=== PATIENT | male | born 1990 | race Caucasian/White ===

== ENCOUNTER → 2020-04-12 | Outpatient (CLI) | payer BC ==
[2015-01-16 09:14] VITALS: BP 123/72
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
== END | disposition home or self-care (01) ==
LOC: KCIC MRI 15:00
PROVIDERS: ATTEND Orthopaedic Surgery Sports Medicine
DX: M71.22 Synovial cyst of popliteal space [Baker], left knee (principal)
CPT/HCPCS: 73721

== ENCOUNTER 2020-11-13 15:15 | Emergency (ER) | payer BC ==
[~2020-11-13] VITALS: Ht 160 cm; Wt 54.5 kg
[2020-11-13 16:50] VITALS: BP 110/75
--- NOTE | 2020-11-13 17:18 | RAD ---
Study: XR RIBS MIN 3 VIEWS RT W/PA CHEST Indication: Right rib pain. Comparison: None. Findings: The cardiomediastinal silhouette and oziel are within normal limits. No pleural effusion, focal airspa ce opacity or pneumothorax. No displaced rib fracture identified on the right. Impression: No displaced rib fracture seen on the right or any other acute radiographic abnormality of the chest. Electronically signed by: CHERYLE ELLIOTT MD (11/13/2020 5:16 PM) [facility]
[2020-11-13] MEDS ORDERED: CYCL10TA2 PO (17:24)
[2020-11-13] MEDS ORDERED: NAPR-695 PO (17:24)
--- NOTE | 2020-11-13 17:25 | ED.ADGEN ---
Past Medical History Past Medical History: Asthma Past Surgical History: Other Additional Past Surgical Histo: glands on neck Smoking Status: Current Every Day Smoker Alcohol Use: Heavy Drug Use: Marijuana General Adult EDM: Chief Complaint: RIB PAIN HPI: HPI: Patient is a 30 year old male who presents emergency department complaints of right lateral rib pain for the last 2 days. He reports that the pain began after twisting to reach for something in his truck and feeling something pull. He denies any shortness of breath, hemoptysis, fever, chest pain, palpitations, nausea, vomiting, diarrhea, body aches, or wheezing. Patient reports that the pain increases with movement, palpation, and deep breath. He currently rates the pain a 5 out of 10 on the pain scale, he denies any alleviating factors. Review of Systems: Review of Systems: Complete ROS is negative unless otherwise noted in HPI. Physical Exam: PE: See Above Constitutional: Well developed, well nourished, no acute distress, non-toxic appearance. [] HENT: Normocephalic, atraumatic, bilateral external ears normal, nose normal. [] Eyes: PERRLA, EOMI, conjunctiva normal, no discharge. [] Neck: Normal range of motion, no stridor. [] Cardiovascular:Heart rate regular rhythm Lungs & Thorax: Respirations even and unlabored, no retractions, no respiratory distress, lungs CTA; tenderness to palpation of the mid right lateral ribs, no crepitus, no subcutaneous emphysema, no obvious deformity Skin: Warm, dry, no erythema, no rash. [] Extremities: No cyanosis, ROM intact, no edema. [] Neurologic: Alert and oriented X 3, no focal deficits noted. [] Psychologic: Affect normal, judgement normal, mood normal. [] EKG: EKG: [] Heart Score: C/O Chest Pain: No Risk Scores: Score 0 - 3: 2.5% MACE over next 6 weeks - Discharge Home Score 4 - 6: 20.3% MACE over next 6 weeks - Admit for Clinical Observation Score 7 - 10: 72.7% MACE over next 6 weeks - Early Invasive Strategies Radiology/Procedures: Radiology/Procedures: PROCEDURE: RIBS RIGHT AND PA CHEST Study: XR RIBS MIN 3 VIEWS RT W/PA CHEST Indication: Right rib pain. Comparison: None. Findings: The cardiomediastinal silhouette and oziel are within normal limits. No pleural effusion, focal airspace opacity or pneumothorax. No displaced rib fracture identified on the right. Impression: No displaced rib fracture seen on the right or any other acute radiographic abnormality of the chest. Electronically signed by: CHERYLE ELLIOTT MD (11/13/2020 5:16 PM) [facility][] Course & Med Decision Making: Course & Med Decision Making Pertinent Labs and Imaging studies reviewed. (See chart for details) [] Dragon Disclaimer: Dragon Disclaimer: This electronic medical record was generated, in whole or in part, using a voice recognition dictation system. Departure Departure Impression: Primary Impression: Acute thoracic myofascial strain Disposition: 01 DC HOME SELF CARE/HOMELESS Condition: STABLE Referrals: NO PCP (PCP) Patient Instructions: Thoracic Strain, [id number] Additional Instructions: Fill prescription(s) and use as directed. Recommend application of ice, elevation, and rest of affected extremity. Hold a pillow to the affected side and take a deep breath and cough at least twice an hour while awake. Follow-up with your primary care doctor in 1 to 2 days, return to the ER if your symptoms worsen or fever develops. Scripts Naproxen (NAPROXEN) 375 Mg Tablet 1 TAB PO BID for 10 Days, #20 TAB 0 Refills Prov: GIOVANA MONTILLA APRN 11/13/20 Cyclobenzaprine Hcl (CYCLOBENZAPRINE HCL) 10 Mg Tablet 1 TAB PO TID PRN for MUSCLE PAIN for 10 Days, #30 TAB 0 Refills Prov: GIOVANA MONTILLA APRN 11/13/20 Problem Qualifiers Primary Impression: Acute thoracic myofascial strain Encounter type: initial encounter Qualified Codes: S29.019A - Strain of muscle and tendon of unspecified wall of thorax, initial encounter GIOVANA MONTILLA APRN Nov 13, 2020 17:25
== END 2020-11-13 17:41 | disposition home or self-care (01) ==
LOC: ER 15:15
DX: S29.012A Strain of muscle and tendon of back wall of thorax, initial encounter (principal); J45.909 Unspecified asthma, uncomplicated; F17.200 Nicotine dependence, unspecified, uncomplicated; F10.20 Alcohol dependence, uncomplicated; Y90.9 Presence of alcohol in blood, level not specified; X50.9XXA Other and unspecified overexertion or strenuous movements or postures, initial encounter; Y93.89 Activity, other specified; Y92.89 Other specified places as the place of occurrence of the external cause; Y99.8 Other external cause status
CPT/HCPCS: 71101; 99283